=== PATIENT | female | born 1960 | race Caucasian/White ===

== ENCOUNTER → 2017-02-10 | Outpatient (CLI) | payer OTHER ==
--- NOTE | 2017-02-10 16:14 | CPEKG ---
Heart Rate: 56 RR Interval: 1071 P-R Interval: 128 QRSD Interval: 92 QT Interval: 444 QTC Interval: 429 P [place]: 6 QRS [place]: 35 T Wave [place]: 27 EKG Severity - NORMAL ECG - EKG Impression: SINUS RHYTHM Electronically Signed By: Carlos Guerra 11-Feb-2017 07:27:29
== END ==
LOC: FCP 15:49
PROVIDERS: ATTEND Family Medicine
DX: Z01.818 Encounter for other preprocedural examination (principal); M18.12 Unilateral primary osteoarthritis of first carpometacarpal joint, left hand